=== PATIENT | female | born 1985 | race African-American/Black ===

== ENCOUNTER 2018-09-06 17:03 | Emergency (ER) | payer OTHER, MEDICAID ==
[2018-09-06] MEDS ORDERED: PROCHLORPERAZINE EDISYLATE INJ 10 MG/2 ML VIAL IV ONE (17:35)
[2018-09-06] MEDS ORDERED: DIPHENHYDRAMINE HCL 50 MG/ML VIAL IV ONE (17:35)
[2018-09-06] MEDS ORDERED: KETOROLAC TROMETHAMINE INJ/PF 30 MG/1 ML SDV IV ONE (17:36)
--- NOTE | 2018-09-06 17:38 | ER Document Report ---
ED Medical Screen (RME) - General Chief Complaint: Headache Stated Complaint: HEADACHE/BLOOD PRESSURE ISSUE Time Seen by Provider: 09/06/18 17:32 Primary Care Provider: TED PABLO MD [Primary Care Provider] - Follow up as needed TRAVEL OUTSIDE OF THE [place] IN LAST 30 DAYS: No - HPI Notes: 09/06/18 17:36 Patient is a 33-year-old female with a history of migraines and hypertension who presents to the emergency department complaining of a headache over the past 4 days with associated nausea and vomiting. Patient states that she has had headaches like this in the past and are always affecting the left side of her forehead. Patient does have associated light sensitivity as well which is normal for her. Patient states that she had not been taking her blood pressure medicines for a while until today because she ran out of her prescriptions. She did take her blood pressure pills about 4-1/2 hours ago. Denies injury, fever, neck pain, URI, CP, SOB, Abd pain, or rash. I have treated and performed a rapid initial assessment of this patient. A comprehensive ED assessment and evaluation of the patient, analysis of test results and completion of medical decision making process will be conducted by additional ED providers. PHYSICAL EXAMINATION: Manual BP to recorded, accurate GENERAL: Well-appearing, well-nourished and in no acute distress. A&Ox4. Answers questions appropriately. Eyes: PERRLA, EOMI. No injection or nystagmus LUNGS: Breath sounds clear to auscultation bilaterally and equal. No wheezes rales or rhonchi. HEART: Regular rate and rhythm without murmurs, rubs, gallops. ABDOMEN: Soft, nondistended abdomen. No guarding, no rebound. Normal bowel sounds present. No CVA tenderness bilaterally. nontender (cannot elicit thorough abd exam w/o table, however). Extremities: No cyanosis, clubbing, or edema b/l. Cranial nerves grossly intact. NIH 0. GCS 15. NEUROLOGICAL: Normal speech, normal gait. PSYCH: Normal mood, normal affect. - Related Data Allergies/Adverse Reactions: No Known Allergies Allergy (Unverified 09/06/18 17:05) Past Medical History - Social History Chew tobacco use (# tins/day): No Frequency of alcohol use: None Drug Abuse: None - Past Medical History Cardiac Medical History: Reports: Hx Hypertension Neurological Medical History: Reports: Hx Migraine Renal/ Medical History: Denies: Hx Peritoneal Dialysis GI Medical History: Reports: Hx Gastroesophageal Reflux Disease Musculoskeltal Medical History: Reports Hx Musculoskeletal Trauma Traumatic Medical History: Reports: Hx Fractures Past Surgical History: Reports: Hx Adenoidectomy, Hx Gynecologic Surgery, Hx Tonsillectomy - Immunizations Immunizations up to date: No Hx Diphtheria, Pertussis, Tetanus Vaccination: No Physical Exam - Vital signs Vitals: Temp Pulse Resp BP Pulse Ox 98.4 F 78 16 152/106 H 99 09/06/18 17:10 09/06/18 17:10 09/06/18 17:10 09/06/18 17:10 09/06/18 17:10 Course - Vital Signs Vital signs: Temp Pulse Resp BP Pulse Ox 98.4 F 78 16 152/106 H 99 09/06/18 17:10 09/06/18 17:10 09/06/18 17:10 09/06/18 17:10 09/06/18 17:10 Doctor's Discharge - Discharge Referrals: TED PABLO MD [Primary Care Provider] - Follow up as needed
[2018-09-06] MEDS ORDERED: CLONIDINE HCL 0.1 MG TABLET PO ONE (17:39)
--- NOTE | 2018-09-06 21:45 | ER Document Report ---
ED Headache - General Chief Complaint: Headache Stated Complaint: HEADACHE/BLOOD PRESSURE ISSUE Time Seen by Provider: 09/06/18 17:32 Primary Care Provider: TED PABLO MD [ACTIVE STAFF] - Follow up as needed Mode of Arrival: Ambulatory Information source: Patient, Relative Notes: Patient is a 33-year-old female comes to emergency room complaining of a migraine headache. Patient also complains that she is had trouble with her blood pressure recently. She relates a story that she was in the she has not been on her blood pressure medications for over 2months because her physician has moved and she needed to get a new one I was unable to find someone. Patient states that she believes her migraine headache is been triggered by her blood pressures being elevated. And she is here tonight to see if she can adjust that. She has just gotten a prescription for her blood pressure medications which include lisinopril and hydrochlorothiazide and amlodipine. She took her friend's medication this morning which was lisinopril hydrochlorothiazide and then she repeated taken out again about 1:00 along with amlodipine as well. She as stated has just refilled her medications. Patient states the migraine headaches been there for 4 days and progressively getting worse. It is the same as all of her other headaches is ever been it originates behind the left eye and stays there. The only difference with this 1 is she is vomited one time today which she usually does not vomit only has nausea. She denies any visual changes TRAVEL OUTSIDE OF THE [place] IN LAST 30 DAYS: No - HPI Patient complains to provider of: Headache, "Migraine" Patient reports: Hx chronic headaches Onset: Other - 4 days total Timing: Gone now Quality of pain: Throbbing Severity: Moderate Pain Level: 3 Associated symptoms: Lightheaded, Memory loss, Nausea/vomiting Exacerbated by: Light, Noise, Movement, Position Similar symptoms previously: Yes Recently seen / treated by doctor: No - Related Data Allergies/Adverse Reactions: No Known Allergies Allergy (Unverified 09/06/18 17:05) Past Medical History - General Information source: Patient, Relative - Social History Smoking Status: Never Smoker Cigarette use (# per day): No Chew tobacco use (# tins/day): No Smoking Education Provided: No Frequency of alcohol use: None Drug Abuse: None Family History: Reviewed & Not Pertinent Patient has suicidal ideation: No Patient has homicidal ideation: No - Past Medical History Cardiac Medical History: Reports: Hx Hypertension Neurological Medical History: Reports: Hx Migraine Renal/ Medical History: Denies: Hx Peritoneal Dialysis GI Medical History: Reports: Hx Gastroesophageal Reflux Disease Musculoskeletal Medical History: Reports Hx Musculoskeletal Trauma Traumatic Medical History: Reports: Hx Fractures Past Surgical History: Reports: Hx Adenoidectomy, Hx Gynecologic Surgery, Hx Tonsillectomy - Immunizations Immunizations up to date: No Hx Diphtheria, Pertussis, Tetanus Vaccination: No Review of Systems - Review of Systems Constitutional: No symptoms reported EENT: No symptoms reported Cardiovascular: No symptoms reported Respiratory: No symptoms reported Gastrointestinal: No symptoms reported Genitourinary: No symptoms reported Female Genitourinary: No symptoms reported Musculoskeletal: No symptoms reported Skin: No symptoms reported Hematologic/Lymphatic: No symptoms reported Neurological/Psychological: Headaches -: Yes All other systems reviewed and negative Physical Exam - Vital signs Vitals: Temp Pulse Resp BP Pulse Ox 98.4 F 78 16 152/106 H 99 09/06/18 17:10 09/06/18 17:10 09/06/18 17:10 09/06/18 17:10 09/06/18 17:10 Interpretation: Normal, Hypertensive - Notes Notes: PHYSICAL EXAMINATION: GENERAL: Welcome well-nourished and in no acute distress. HEAD: Atraumatic, normocephalic. EYES: Pupils equal round and reactive to light, extraocular movements intact, conjunctiva are normal. ENT: Nares patent, oropharynx clear without exudates. Moist mucous membranes. NECK: Normal range of motion, supple without lymphadenopathy LUNGS: Breath sounds clear to auscultation bilaterally and equal. No wheezes rales or rhonchi. HEART: Regular rate and rhythm without murmurs ABDOMEN: Soft, nontender, nondistended abdomen. No guarding, no rebound. No masses appreciated. Female : deferred Musculoskeletal: Normal range of motion, no pitting or edema. No cyanosis. NEUROLOGICAL: Cranial nerves grossly intact. Normal speech, normal gait. Normal sensory, motor exams PSYCH: Normal mood, normal affect. SKIN: Warm, Dry, normal turgor, no rashes or lesions noted. Course - Re-evaluation Re-evalutation: 09/06/18 21:45 Patient was given a cocktail of 1 of the providers which include diphenhydramine, clonidine Compazine, and ketorolac. Patient stated she felt much better her headache was almost gone. She thought the combination did well repeat of her blood pressure manually showed a pressure of 104/70 I asked patient on 3 separate occasions of her headaches are any different than her normal migraine headaches and she replied all 3 times note are not so I do not feel that any further investigation with a CT of the head was needed at this time and I explained this to both the patient and the mother. 09/06/18 21:46 - Vital Signs Vital signs: Temp Pulse Resp BP Pulse Ox 98.4 F 73 17 104/74 99 09/06/18 17:10 09/06/18 21:31 09/06/18 21:31 09/06/18 21:31 09/06/18 21:31 Discharge - Discharge Clinical Impression: Migraine Qualifiers: Migraine type: without aura Status migrainosus presence: without status migrainosus Intractability: not intractable Qualified Code(s): G43.009 - Migraine without aura, not intractable, without status migrainosus Hypertension Qualifiers: Hypertension type: essential hypertension Qualified Code(s): I10 - Essential (primary) hypertension Disposition: HOME, SELF-CARE Instructions: Use of Diphenhydramine, Headache ([facility]), Toradol Injection ([facility]) Additional Instructions: Home and rest continue taking her blood pressure medications as directed daily. As we discussed keep a log to your provider will know what to change and not change whether it be medication in the morning or afternoon or evening. Keep a log of all those times I told you about. Forms: Elevated Blood Pressure, Parent Work Note Referrals: TED PABLO MD [ACTIVE STAFF] - Follow up as needed
[2018-09-06 22:30] VITALS: BP 95/72
== END 2018-09-06 22:28 | disposition home or self-care (01) ==
LOC: ER 17:03
DX: G43.009 Migraine without aura, not intractable, without status migrainosus (principal); I10 Essential (primary) hypertension
CPT/HCPCS: 99283; 96374; 96375; J1200; J1885; J0780